=== PATIENT | male | born 1940 | race Caucasian/White ===

== ENCOUNTER 2017-03-20 07:43 | Outpatient (CLI) | payer MEDICARE, OTHER | END 2017-03-20 07:44 | disposition EMS.NT | DX: Z03.89 Encounter for observation for other suspected diseases and conditions ruled out (principal); Y04.2XXA Assault by strike against or bumped into by another person, initial encounter; Y92.009 Unspecified place in unspecified non-institutional (private) residence as the place of occurrence of the external cause ==

== ENCOUNTER 2020-03-30 06:55 | Outpatient (CLI) | payer MEDICARE, OTHER | END 2020-03-30 06:56 | disposition short-term general hospital (02) | LOC: EMS 06:55 | PROVIDERS: ATTEND Surgery | DX: R00.2 Palpitations (principal) | CPT/HCPCS: A0425; A0429; A0888 ==

== ENCOUNTER 2023-11-10 22:13 | Outpatient (CLI) | payer MEDICARE, OTHER | END 2023-11-10 23:59 | disposition short-term general hospital (02) | LOC: EMS 22:13 | DX: R42 Dizziness and giddiness (principal) | CPT/HCPCS: A0425; A0427; A0888 ==

== ENCOUNTER 2023-11-15 21:26 | Outpatient (CLI) | payer MEDICARE, OTHER | END 2023-11-15 23:59 | disposition EMS.NT | LOC: EMS 21:26 | DX: R41.0 Disorientation, unspecified (principal) ==